=== PATIENT | male | born 1990 | race Caucasian/White ===

== ENCOUNTER 2018-06-06 13:28 | Emergency (ER) | payer SELFPAY | END 2018-06-06 13:50 | disposition home or self-care (01) | LOC: BURERS 13:28 | DX: J06.9 Acute upper respiratory infection, unspecified (principal); F17.210 Nicotine dependence, cigarettes, uncomplicated | CPT/HCPCS: 99283 ==

== ENCOUNTER → 2018-11-20 | Emergency (ER) | payer SELFPAY | LOC: BURERS 13:30 | DX: S33.5XXA Sprain of ligaments of lumbar spine, initial encounter (principal); F17.210 Nicotine dependence, cigarettes, uncomplicated; X50.1XXA Overexertion from prolonged static or awkward postures, initial encounter | CPT/HCPCS: 99283 ==

== ENCOUNTER 2019-02-16 11:15 | Emergency (ER) | payer SELFPAY ==
[2019-02-16] MEDS ORDERED: Ondansetron ODT 4 MG TAB ONE (11:30)
== END 2019-02-16 12:58 | disposition home or self-care (01) ==
LOC: BURERS 11:15
DX: E86.0 Dehydration (principal); R55 Syncope and collapse; F17.210 Nicotine dependence, cigarettes, uncomplicated
CPT/HCPCS: 93005; 96360; Q0162

== ENCOUNTER 2019-12-19 10:35 | Emergency (ER) | payer SELFPAY | END 2019-12-19 11:19 | disposition home or self-care (01) | LOC: BURERS 10:35 | DX: K52.9 Noninfective gastroenteritis and colitis, unspecified (principal); F17.210 Nicotine dependence, cigarettes, uncomplicated; Z71.6 Tobacco abuse counseling | CPT/HCPCS: 99406 ==

== ENCOUNTER 2020-02-28 17:16 | Emergency (ER) | payer SELFPAY | END 2020-02-28 17:49 | disposition home or self-care (01) | LOC: BURERS 17:16 | DX: R59.0 Localized enlarged lymph nodes (principal); F17.210 Nicotine dependence, cigarettes, uncomplicated | CPT/HCPCS: 99283 ==

== ENCOUNTER 2020-05-07 09:12 | Emergency (ER) | payer OTHER | END 2020-05-07 09:37 | disposition home or self-care (01) | LOC: BURERS 09:12 | DX: M54.5 Low back pain (principal); F17.210 Nicotine dependence, cigarettes, uncomplicated; X50.1XXA Overexertion from prolonged static or awkward postures, initial encounter | CPT/HCPCS: 99283 ==

== ENCOUNTER 2021-02-18 13:35 | Emergency (ER) | payer OTHER ==
[2021-02-18] MEDS ORDERED: Acetaminophen 500 MG TAB ONE (14:37)
== END 2021-02-18 15:15 | disposition home or self-care (01) ==
LOC: BURERS 13:35
DX: S39.012A Strain of muscle, fascia and tendon of lower back, initial encounter (principal); L53.9 Erythematous condition, unspecified; F17.210 Nicotine dependence, cigarettes, uncomplicated; V89.2XXA Person injured in unspecified motor-vehicle accident, traffic, initial encounter
CPT/HCPCS: 72100

== ENCOUNTER 2021-04-21 11:12 | Emergency (ER) | payer OTHER ==
[2021-04-21] MEDS ORDERED: Dexamethasone 4 MG TAB ONE (12:33)
[2021-04-22 00:44] LABS: SARS-CoV-2 PCR by NAA Not Detected (NotDetected)
== END 2021-04-21 12:40 | disposition home or self-care (01) ==
LOC: BURERS 11:12
DX: R09.81 Nasal congestion (principal); R07.81 Pleurodynia; R50.9 Fever, unspecified; R06.2 Wheezing; R53.81 Other malaise; R05 Cough; F17.210 Nicotine dependence, cigarettes, uncomplicated; Z20.822 Contact with and (suspected) exposure to COVID-19
CPT/HCPCS: 71045; J8540; U0003; U0005

== ENCOUNTER 2021-04-22 | Emergency (ER) | payer OTHER | END 2021-04-22 13:32 | disposition home or self-care (01) | DX: R09.81 Nasal congestion (principal); R05 Cough; R50.9 Fever, unspecified; Z20.822 Contact with and (suspected) exposure to COVID-19; F17.210 Nicotine dependence, cigarettes, uncomplicated ==

== ENCOUNTER 2022-01-31 09:25 | Emergency (ER) | payer OTHER | END 2022-01-31 10:29 | disposition home or self-care (01) | LOC: BURERS 09:25 | DX: U07.1 COVID-19 (principal); J12.82 Pneumonia due to coronavirus disease 2019; F17.210 Nicotine dependence, cigarettes, uncomplicated; Z79.899 Other long term (current) drug therapy | CPT/HCPCS: 71046; 87804; U0003; U0005 ==

== ENCOUNTER 2022-06-07 11:16 | Emergency (ER) | payer OTHER, SELFPAY | END 2022-06-07 11:34 | disposition home or self-care (01) | LOC: BURERS 11:16 | DX: J02.9 Acute pharyngitis, unspecified (principal); F17.210 Nicotine dependence, cigarettes, uncomplicated | CPT/HCPCS: 99282 ==

== ENCOUNTER 2022-07-14 17:27 | Emergency (ER) | payer SELFPAY | END 2022-07-14 18:07 | disposition home or self-care (01) | LOC: BURERS 17:27 | DX: H93.13 Tinnitus, bilateral (principal); F17.210 Nicotine dependence, cigarettes, uncomplicated | CPT/HCPCS: 99283 ==

== ENCOUNTER 2023-04-26 13:55 | Emergency (ER) | payer BC ==
[2023-04-26] MEDS ORDERED: predniSONE 20 MG TAB ONE (14:16)
== END 2023-04-26 14:30 | disposition home or self-care (01) ==
LOC: BURERS 13:55
DX: J18.9 Pneumonia, unspecified organism (principal); F17.210 Nicotine dependence, cigarettes, uncomplicated
CPT/HCPCS: 71046; J7512

== ENCOUNTER 2024-02-28 13:43 | Emergency (ER) | payer BC ==
[2024-02-28] MEDS ORDERED: Lidocaine 1% (PF) 30 ML VIAL ONE (13:59)
== END 2024-02-28 14:27 | disposition home or self-care (01) ==
LOC: BURERS 13:43
DX: L02.214 Cutaneous abscess of groin (principal); F17.210 Nicotine dependence, cigarettes, uncomplicated
CPT/HCPCS: 10060; J2001